=== PATIENT | female | born 1960 | race Two or more races ===

== ENCOUNTER 2021-06-27 13:35 | Emergency (ER) | payer MEDICAID ==
[~2021-06-27] VITALS: Ht 154.9 cm; Wt 78.0 kg
--- NOTE | 2021-06-27 15:00 | NUR ---
CHAPERONED MD WITH RECTAL EXAM, PT TOLERATED WEEL.
[2021-06-27] MEDS ORDERED: HYDR25SU33 RC (15:15)
== END 2021-06-27 15:30 | disposition home or self-care (01) ==
LOC: ER 13:35
DX: K64.8 Other hemorrhoids (principal); Z85.038 Personal history of other malignant neoplasm of large intestine; Z88.0 Allergy status to penicillin
CPT/HCPCS: A4663